=== PATIENT | male | born 1965 | race Caucasian/White ===

== ENCOUNTER 2017-07-14 16:00 | Emergency (ER) | payer OTHER ==
--- NOTE | 2017-07-14 18:58 | ED ---
Abdominal Pain/Male - HPI Summary HPI Summary: 51 yr male with the complaint of pain on urination, and pain when finishes urinating. The patient denies fever, chills. He does not have pain presently. The patient states he took his BP meds. He is a diabetic. The patient states he had a urine and gc, chlamydia done last week that was negative. He is here wondering why he is still having trouble urinating. - History of Current Complaint Chief Complaint: [facility]CGU Stated Complaint: PAINFUL BLADDER CONTRACTIONS Time Seen by Provider: 07/14/17 18:23 - Allergies/Home Medications Allergies/Adverse Reactions: Allergies Allergy/AdvReac Type Severity Reaction Status Date / Time Penicillins Allergy See Comment Verified 07/14/17 16:32 PMH/Surg Hx/FS Hx/Imm Hx Endocrine/Hematology History: Reports: Hx Diabetes Cardiovascular History: Reports: Hx Hypertension Infectious Disease History: No Infectious Disease History: Denies: Traveled Outside the [place] in Last 30 Days - Social History Alcohol Use: None Substance Use Type: Reports: Prescribed Smoking Status (MU): Never Smoked Tobacco Review of Systems Constitutional: Negative Positive: Other - very high blood pressure Positive: dysuria, frequency All Other Systems Reviewed And Are Negative: Yes Physical Exam Triage Information Reviewed: Yes Vital Signs On Initial Exam: Initial Vitals Temp Pulse Resp BP Pulse Ox 98.6 F 74 12 204/128 100 07/14/17 16:27 07/14/17 16:27 07/14/17 16:27 07/14/17 16:27 07/14/17 16:27 Vital Signs Reviewed: Yes Appearance: Positive: Well-Appearing, No Pain Distress Skin: Positive: Warm Head/Face: Positive: Normal Head/Face Inspection Eyes: Positive: EOMI ENT: Positive: Pharynx normal Respiratory/Lung Sounds: Positive: Clear to Auscultation, Breath Sounds Present Cardiovascular: Positive: RRR. Negative: Murmur Abdomen Description: Positive: Nontender, Other: - rectal exam with non tender prostate. Male Genital Exam: Positive: normal prostate Neurological: Positive: Sensory/Motor Intact, Alert, Oriented to Person Place, Time, CN Intact II-III, Normal Gait Psychiatric: Positive: Normal Diagnostics - Vital Signs Vital Signs Temp Pulse Resp BP Pulse Ox 07/14/17 16:27 98.6 F 74 12 204/128 100 - Laboratory Lab Results: Lab Results 07/14/17 Range/Units 18:26 POC Urine Color Yellow POC Urine Clarity Clear POC Urine pH 7.5 (5-9) POC Ur Specif [place] 1.020 (1.010-1.030) POC Urine Protein 3+ H (Negative) POC Ur Glucose (UA) Negative (Negative) POC Urine Ketones Negative (Negative) POC Urine Blood Negative (Negative) POC Urine Nitrite Negative (Negative) POC Urine Bilirubin Negative (Negative) POC Urine Urobilinogen 0.2 (Negative) POC U Leukocyte Esteras Negative (Negative) Lab Statement: Any lab studies that have been ordered have been reviewed, and results considered in the medical decision making process. Abdominal Pain Fem Course/Dx - Course Course Of Treatment: 51 yr old male with low pelvic pain described as bladder spasms. His BP is very high. He refused transfer to the ER by ambulance and signed out AMA. He states he is calling his brother to take him by car. He is aware of risk of delay in care, , disabiity, stroke among other things. - Diagnoses Provider Diagnoses: Abdominal pain, Hypertensive urgency Discharge - Discharge Plan Condition: Good Disposition: AGAINST MEDICAL ADVICE
[2017-07-14 19:02] VITALS: BP 201/110
== END 2017-07-14 19:00 | disposition left against medical advice (07) ==
LOC: UCEAST 16:00
DX: R10.9 Unspecified abdominal pain (principal); E11.9 Type 2 diabetes mellitus without complications; I10 Essential (primary) hypertension; Z88.0 Allergy status to penicillin
CPT/HCPCS: 81003; 99212; G0463

== ENCOUNTER 2017-07-14 19:49 | Emergency (ER) | payer OTHER ==
--- NOTE | 2017-07-14 22:36 | ED ---
Karli Wright Rebecca, scribed for Chris Whitney MD on 07/14/17 at 2132 . GI/ HPI - HPI Summary HPI Summary: Pt is a 51 y/o M referred from [facility] who presents to ED c/o bladder contractions and difficulty urinating for 3 days. Currently, he is not experiencing any pain. Sx are present when urinating and reports that he must sit down to produce urine. Sx aggravated by urination, alleviated by nothing. Additionally notes hypertension [employer] at [facility]. No prior similar episodes. Last seen by his urologist (Dr. Thorne) about 5 months ago for a bladder inspection due to an infection. - History of Current Complaint Chief Complaint: EDUrogenitalProblems Time Seen by Provider: 07/14/17 21:31 Stated Complaint: XFER FROM [facility]/HIGH BLOOD PRESSURE Hx Obtained From: Patient Onset/Duration: Started Days Ago - 3 days, Still Present Current Severity: None Pain Intensity: 0 - Bladder - when urinating Pain Characteristics: Other: - contractions Associated Signs and Symptoms: Positive: Other: - Difficulty urinating Aggravating Factor(s): Urination Alleviating Factor(s): Nothing - Allergy/Home Medications Allergies/Adverse Reactions: Allergies Allergy/AdvReac Type Severity Reaction Status Date / Time Penicillins Allergy See Comment Verified 07/14/17 16:32 PMH/Surg Hx/FS Hx/Imm Hx Endocrine/Hematology History: Reports: Hx Diabetes Cardiovascular History: Reports: Hx Hypertension Infectious Disease History: No Infectious Disease History: Denies: Traveled Outside the [place] in Last 30 Days - Family History Known Family History: Positive: Cardiac Disease, Other - Hypotension - Social History Alcohol Use: None Substance Use Type: Reports: Prescribed Smoking Status (MU): Never Smoked Tobacco Review of Systems Positive: Other - Hypertension [employer] at [facility] Positive: pain - Bladder contractions when urinating, other - Difficulty urinating All Other Systems Reviewed And Are Negative: Yes Physical Exam Triage Information Reviewed: Yes Vital Signs On Initial Exam: Initial Vitals Temp Pulse Resp BP Pulse Ox 96.9 F 67 16 201/106 100 07/14/17 19:52 07/14/17 19:52 07/14/17 19:52 07/14/17 19:52 07/14/17 19:52 Vital Signs Reviewed: Yes Appearance: Positive: Well-Appearing, No Pain Distress Skin: Positive: Warm Head/Face: Positive: Normal Head/Face Inspection Eyes: Positive: DIOMEDES ENT: Positive: Hearing grossly normal Neck: Positive: Supple Respiratory/Lung Sounds: Positive: Clear to Auscultation, Breath Sounds Present Cardiovascular: Positive: RRR Abdomen Description: Positive: Nontender, Soft. Negative: CVA Tenderness (R), CVA Tenderness (L) Bowel Sounds: Positive: Present Musculoskeletal: Positive: Strength/ROM Intact Neurological: Positive: Alert, Oriented to Person Place, Time Psychiatric: Positive: Anxious Diagnostics - Vital Signs Vital Signs Temp Pulse Resp BP Pulse Ox 07/14/17 21:25 73 99 07/14/17 19:52 96.9 F 67 16 201/106 100 - Laboratory Result Diagrams: 07/14/17 22:58 07/14/17 22:58 Lab Statement: Any lab studies that have been ordered have been reviewed, and results considered in the medical decision making process. - EKG 1999 Cardiac Rate: NL - 72 bpm EKG Rhythm: Sinus Rhythm ST Segment: Non-Specific - Non-specific ST T abnormality Re-Evaluation - Re-Evaluation First Eval Re-Evaluation Time: 00:01 Comment: Discussed results and D/C plan with the pt. GIGU Course/Dx - Course Assessment/Plan: Pt is a 51 y/o M referred from [facility] who presents to ED c/o bladder contractions and difficulty urinating for 3 days. Currently, he is not experiencing any pain. Sx are present when urinating and reports that he must sit down to produce urine. Sx aggravated by urination, alleviated by nothing. Additionally notes hypertension [employer] at [facility]. No prior similar episodes. Last seen by his urologist (Dr. Thorne) about 5 months ago for a bladder inspection due to an infection. EKG reveals sinus rhythm with non-specific ST T abnormalities. Troponin of 0.01. He will be D/C to home with Dx of dysuria and a follow up with Dr. Thorne. He understands and agrees. Elevated BP noted and advised to f/u with PCP. - Diagnoses Provider Diagnoses: Dysuria Discharge - Discharge Plan Condition: Stable Disposition: HOME Patient Education Materials: Dysuria (ED) Referrals: Donnie Thorne MD [Medical Doctor] - 3 Days Additional Instructions: Return to the Emergency Department for any returning or worsening symptoms. The documentation as recorded by the Karli plaza Rebecca accurately reflects the service I personally performed and the decisions made by me, Chris Whitney MD.
[2017-07-14 23:09] LABS: Hematocrit 47 % (42-52); Hemoglobin 16.4 g/dl (14.0-18.0); Mean Corpuscular HGB Conc 35 g/dl (31-36); Mean Corpuscular Hemoglobin 31 pg (27-31); Mean Corpuscular Volume 87 fL (80-94); Mean Platelet Volume 8 um3 (7.4-10.4); Red Blood Count 5.37 10^6/ul (4.0-5.4); Red Cell Distribution Width 14 % (10.5-15); White Blood Count 12.1 10^3/ul (3.5-10.8)
[2017-07-14 23:16] LABS: Urine Bacteria Absent (Absent); Urine Bilirubin Negative (Negative); Urine Glucose Negative (Negative); Urine Nitrite Negative (Negative)
[2017-07-14 23:21] LABS: BUN/Creatinine Ratio 7.5 (8-20); Calcium 9.8 mg/dL (8.6-10.3); EGFR African American 65.7 (>60); EGFR Non-African American 51.1 (>60); Potassium 3.2 mmol/L (3.5-5.0)
[2017-07-14] MEDS ORDERED: Potassium Chloride LIQUID* 20 MEQ PACKET PO ONE (23:22)
[2017-07-14 23:52] LABS: Troponin I 0.01 ng/mL (<0.04)
[2017-07-15 00:34] VITALS: BP 188/98
== END 2017-07-15 00:34 | disposition home or self-care (01) ==
LOC: ED 19:49
DX: R30.0 Dysuria (principal); I10 Essential (primary) hypertension
CPT/HCPCS: 36415; 80048; 81003; 81015; 84484; 85025; 87086; 93005; 99283; A9270-GY